=== PATIENT | female | born 1975 | race Caucasian/White ===

== ENCOUNTER 2017-11-28 09:05 | Emergency (ER) | payer BC ==
[~2017-11-28] VITALS: Ht 162.6 cm; Wt 65.3 kg
[2017-11-28 09:06] VITALS: Ht 162.6 cm; Wt 65.3 kg
[2017-11-28 13:30] VITALS: BP 131/78
== END 2017-11-28 13:30 | disposition home or self-care (01) ==
LOC: ED 09:05
DX: S01.81XA Laceration without foreign body of other part of head, initial encounter (principal); S13.4XXA Sprain of ligaments of cervical spine, initial encounter; X58.XXXA Exposure to other specified factors, initial encounter; Y93.89 Activity, other specified; Y92.89 Other specified places as the place of occurrence of the external cause; Y99.8 Other external cause status
CPT/HCPCS: J2001